=== PATIENT | female | born 2000 | race Caucasian/White ===

== ENCOUNTER 2021-12-13 01:20 | Inpatient (IN) | payer OTHER ==
[~2021-12-13] VITALS: Ht 162.6 cm; Wt 75.7 kg
[2021-12-13] MEDS ORDERED: NALBUPHINE HCL 10 MG/ML AMP IVP PRN (03:00)
[2021-12-13] MEDS ORDERED: TERBUTALINE SULFATE 1 MG/ML VIAL SUBCUT ONE (03:00)
[2021-12-13] MEDS ORDERED: NALBUPHINE HCL 10 MG/ML AMP IM PRN (03:00)
[2021-12-13] MEDS ORDERED: OXYTOCIN/0.9 % SODIUM CHLORIDE 1,000 ML IV SCH ×3 (03:00→21:15)
[2021-12-13 03:42] LABS: EOSINOPHILS % (AUTO) 0.3 % (0.0-4.0); HEMATOCRIT 34.2 % (36-48); LYMPHOCYTES # (AUTO) 1.7 K/uL (1.0-5.5); MONOCYTES # (AUTO) 0.7 K/uL (0.0-1.0); RED BLOOD CELL COUNT(AUTO) 4.05 MIL/uL (4.2-6.2)
[2021-12-13 03:48] LABS: BASOPHILS # (AUTO) 0.1 K/uL (0.0-0.2); BASOPHILS % (AUTO) 0.6 % (0.0-2.0); HEMOGLOBIN 11.5 g/dL (12.0-16.0); LYMPHOCYTES % (AUTO) 14.6 % (20.5-51.5); MEAN CORPUSCULAR HEMOGLOBIN 28 pg (27-31); MEAN CORPUSCULAR HGB CONC 34 % (32-36); MEAN CORPUSCULAR VOLUME 84 fL (79.0-98.0); MONOCYTES % (AUTO) 5.6 % (1.7-9.3); NEUTROPHILS # (AUTO) 9.3 K/uL (1.8-7.7); NEUTROPHILS % (AUTO) 78.9 % (40.0-70.0); PLATELET COUNT (AUTO) 204 K/uL (130-430); RED CELL DISTRIBUTION WIDTH 13.5 % (9.0-15.0); WHITE BLOOD COUNT (AUTO) 11.8 K/uL (4.8-10.8)
[2021-12-13] MEDS: LR 1,000 ML IV SCH ×5 (04:18→16:13)
[2021-12-13] MEDS ORDERED: AMPICILLIN SODIUM 2 GM in NS 100 ML IV ONE (12:30)
[2021-12-13] MEDS ORDERED: ACETAMINOPHEN 325 MG TABLET PO PRN (12:30)
[2021-12-13] MEDS ORDERED: AMPICILLIN SODIUM 2 GM VIAL ONE (12:51)
[2021-12-13] MEDS ORDERED: GENTAMICIN 100 MG/ ISO-OSM 50 ML PREMIX IV SCH (14:00)
[2021-12-13] MEDS ORDERED: ROPIVACAINE HCL/PF 0.2% 200 ML ONE (14:55)
[2021-12-13] MEDS ORDERED: fentaNYL CITRATE/PF 100 MCG/2 ML AMP ONE (14:55)
[2021-12-13] MEDS ORDERED: FENT2mCg/mL-ROPIVA0.2%/NS EPID 200 ML EP SCH (15:30)
[2021-12-13] MEDS ORDERED: LR 500 ML IV ONE (15:30)
[2021-12-13] MEDS ORDERED: AMPICILLIN SODIUM 1 GM in NS 50 ML IV SCH (16:30)
[2021-12-13] MEDS ORDERED: TERBUTALINE SULFATE 1 MG/ML VIAL ONE (18:36)
[2021-12-13] MEDS ORDERED: LIGHT MINERAL OIL 10 ML VIAL MC ONE (19:47)
[2021-12-13] MEDS ORDERED: NALOXONE HCL 0.4 MG/ML AMP (NARCAN) ONE (19:47)
[2021-12-13] MEDS ORDERED: LIDOCAINE PF 1% 30ML(POUR BTL) INJ ONE (19:47)
[2021-12-13] MEDS ORDERED: TEMAZEPAM 15 MG CAPSULE PO PRN (21:00)
[2021-12-13] MEDS ORDERED: WITCH HAZEL LEAF 1 MED.PAD MED.PAD TP PRN (21:15)
[2021-12-13] MEDS ORDERED: NALOXONE HCL 0.4 MG/ML AMP (NARCAN) IVP PRN (21:15)
[2021-12-13] MEDS ORDERED: HYDROCORTISONE 0.5% CREAM 28.4 GM CREAM.GM. TP PRN (21:15)
[2021-12-13] MEDS ORDERED: OXYCODONE/ACETAMINOPHEN 5-325 TABLET PO PRN ×2 (21:15)
[2021-12-13] MEDS ORDERED: HYDROcodone/ACETAMIN 5-325 MG TAB (NORCO/ VICODIN) PO PRN (21:15)
[2021-12-13] MEDS ORDERED: RHO(D) IMMUNE GLOBULIN/MALTOSE 1500 UNITS/1.3 ML (WINHRO) IM PRN (21:15)
[2021-12-13] MEDS ORDERED: ANUSOL 1 EA SUPP.RECT (PREPARATION H) RC PRN (21:15)
[2021-12-13] MEDS ORDERED: MEASLES,MUMPS&RUBELLA VACC/PF 12500 UNIT/0.5 ML VIAL SUBQ PRN (21:15)
[2021-12-13] MEDS ORDERED: DIPH-TET-PERTUS Vaccine 0.5 ML VIAL (ADACEL) I.M. PRN (21:15)
[2021-12-13] MEDS ORDERED: LANOLIN 7 GM OINT. TP PRN (21:15)
[2021-12-13] MEDS ORDERED: DERMOPLAST SPRAY TP PRN (21:15)
[2021-12-13] MEDS ORDERED: OXYTOCIN/0.9 % SODIUM CHLORIDE 1,000 ML IV ONE (21:15)
[2021-12-14] MEDS: IBUPROFEN 600 MG TABLET PO SCH ×4 (00:03→20:29)
[2021-12-14 07:03] LABS: HEMATOCRIT 27.5 % (36-48); HEMOGLOBIN 9.5 g/dL (12.0-16.0); MEAN CORPUSCULAR HEMOGLOBIN 29 pg (27-31); MEAN CORPUSCULAR HGB CONC 35 % (32-36); MEAN CORPUSCULAR VOLUME 84 fL (79.0-98.0); PLATELET COUNT (AUTO) 196 K/uL (130-430); RED BLOOD CELL COUNT(AUTO) 3.26 MIL/uL (4.2-6.2); RED CELL DISTRIBUTION WIDTH 13.3 % (9.0-15.0)
[2021-12-14 07:30] LABS: CALCIUM 8.5 mg/dL (8.4-11.0); CREATININE 0.94 mg/dL (0.55-1.30); POTASSIUM 4.6 mmol/L (3.5-5.1)
[2021-12-14] MEDS ORDERED: DOCUSATE SODIUM 100 MG CAPSULE PO SCH (09:00)
[2021-12-14 09:25] LABS: WHITE BLOOD COUNT (AUTO) 32.5 K/uL (4.8-10.8)
[2021-12-14] MEDS ORDERED: GENTAMICIN 100 MG/ ISO-OSM 50 ML PREMIX IV SCH (12:00)
[2021-12-14] MEDS: ceFAZolin SODIUM 2 GM in D5W 50 ML IV SCH ×2 (12:01→20:14)
[2021-12-14 13:12] LABS: BAND % (MANUAL) 20 % (0-6); BASOPHILS % (MANUAL) 0 % (0-2); EOSINOPHILS % (MANUAL) 0 % (0-7); LYMPHOCYTES % (MANUAL) 10 % (20-46); MONOCYTES % (MANUAL) 8 % (0-11)
[2021-12-14] MEDS ORDERED: SENNOSIDES/DOCUSATE SODIUM 1 TAB TABLET(SENOKOT-S) PO SCH (21:00)
== END 2021-12-14 22:25 | disposition home or self-care (01) | DRG 560 ==
LOC: SPU 01:20
PROVIDERS: ADMIT Obstetrics & Gynecology; ATTEND Obstetrics & Gynecology
PROC: 10D07Z6 Extraction of Products of Conception, Vacuum, Via Natural or Artificial Opening (ICD-10-PCS; principal; 2021-12-13)
PROC: 0W8NXZZ Division of Female Perineum, External Approach (ICD-10-PCS; 2021-12-13)
PROC: 3E0R3BZ Introduction of Anesthetic Agent into Spinal Canal, Percutaneous Approach (ICD-10-PCS; 2021-12-13)
PROC: 00HU33Z Insertion of Infusion Device into Spinal Canal, Percutaneous Approach (ICD-10-PCS; 2021-12-13)
PROC: 3E0P7VZ Introduction of Hormone into Female Reproductive, Via Natural or Artificial Opening (ICD-10-PCS; 2021-12-13)
PROC: 3E033VJ Introduction of Other Hormone into Peripheral Vein, Percutaneous Approach (ICD-10-PCS; 2021-12-13)
PROC: 0KQM0ZZ Repair Perineum Muscle, Open Approach (ICD-10-PCS; 2021-12-13)
DX: O76 Abnormality in fetal heart rate and rhythm complicating labor and delivery (principal); Z37.0 Single live birth; O36.4XX0 Maternal care for intrauterine death, not applicable or unspecified; O41.03X0 Oligohydramnios, third trimester, not applicable or unspecified; O77.0 Labor and delivery complicated by meconium in amniotic fluid; O69.1XX0 Labor and delivery complicated by cord around neck, with compression, not applicable or unspecified; O48.0 Post-term pregnancy; Z3A.40 40 weeks gestation of pregnancy; O70.1 Second degree perineal laceration during delivery
CPT/HCPCS: 36415; 80048; 85007; 85025; 85027; 86592; 86886; 86900; 86901; J0290; J1580; J2001; J2310; J2590; J3010; J3105; J7060